=== PATIENT | male | born 1985 | race Hispanic/Latino ===

== ENCOUNTER 2017-04-13 00:47 | Emergency (ER) | payer SELFPAY ==
[2017-04-13 00:53] VITALS: BP 172/86; PULSE 75; O2SAT 100
--- NOTE | 2017-04-13 02:05 | ED.REPORT ---
HPI-Back Pain Under 40 Date of Service Apr 13, 2017 ED Provider: Dr. Galan The pt is a 31 y/o homeless and unemployed male with no pertinent hx who presents to the ED complaining of worsening left sided lower back pain, onset three months ago. The pt has had this pain since a work-related accident in 2014. He has not had physical therapy or pain medication for the last three months. Associated sx include tingling sensation radiating to the lower extremities. He reports difficulty sleeping and depression due to the pain. He denies recent injury to the back and fever. The pt does not have a PCP since being unemployed. Nursing Notes Stated Complaint: BACK PAIN Chief Complaint: Back Pain or Injury Nursing Notes Reviewed: Yes Allergies: Coded Allergies: No Known Allergies (Unverified Allergy, Unknown, 07/24/15) General Time Seen by MD: 02:05 Chief Complaint Back pain Hx Obtained From: Patient Arrived By: Walk-in Sudden in Onset?: No Onset Occurred: More than a week ago... (3 months) Symptom Duration: Since onset Location: : Perispinal lumbar Quality: Painful Radiation: : Does not radiate Severity: Current: Moderate Severity: Maximum: Severe Recent Healthcare: No recent doctor visit Past Medical History Past Medical History none reported Past Surgical History none reported Smoking History Never Smoker Social History Alcohol Use: 1-3 per week Drug Use: Denies drug use Other Social History: Homeless Occupation Unemployed Ambulatory Status Independent Review of Systems Reports: tingling sensation in the lower extremities Denies: recent injury to the back Basic Review of Systems Eyes: Vision NL ENT: Hearing NL, No pain Hematologic: No bleeding Endocrine: No cold intolerance, No heat intolerance Constitutional: Reports: Fever Male: Denies Dysuria Musculoskeletal: Reports: Back pain Complete sys rev & neg: except as marked. (he denies saddle anesthesia, loss of bowel or bladder control. Denies urine retention. Denies leg weakness.) Psychiatric: Reports: Depression (due to unmanaged pain) Physical Exam Initial Vital Signs Vital Signs (First) Date Time Temp Pulse Resp B/P Pulse Ox O2 Delivery O2 Flow Rate FiO2 04/13/17 00:53 36.7 75 172/86 100 Room Air Initial VS: Reviewed Head / Eyes: Atraumatic, Normocephalic Neck: Supple, Non-tender, Full range of motion Respiratory: Breath sounds normal, Clear to auscultation, No respiratory distress Cardiovascular: Heart sounds normal, Intact distal pulses Abdomen / GI: Soft, Non-tender, No guarding, No rebound, No distention Extremities: Vascular intact, Neuro intact, No swelling, No tenderness Skin: Warm, Dry, No cyanosis General/Constitutional: Awake, Alert, Well appearing, Cooperative Distress / Hydration: Positive: Distress mild Back: Atraumatic, Full range of motion, No midline vertebral tend No cord syndrome Neurologic: Oriented X3, Speech NL, No motor deficits, No sensory deficits Re-Eval/Medical Decision Med Decision/Clinical Course No high risk features for infection.. No midline tenderness. No fever. No injection drug abuse. No cord syndrome or signs of myelopathy. As such emergent MRI not indicated. His pain will be treated with IM Toradol. A take- home pack of [place] will be provided. Recommend [id number] ibuprofen and outpatient follow-up. Re-Evaluation/Progress : Time of Eval: 02:21 Re-Evaluation/Progress Note: Rechecked pt. Discussed diagnosis and plan to discharge. Pt understands and agrees with the plan. F/U instruction and RTER warning given. All questions addressed. Counseled Regarding: Diagnosis, Need for follow-up, When/why to return to ED Discharge & Departure Impression: Primary Impression: Low back pain Chronicity: chronic Back pain laterality: right Sciatica presence: without sciatica Qualified Code: M54.5 - Low back pain Disposition: Home All VS Reviewed: Yes Condition: Stable Patient Instructions: Lumbar Radiculopathy (ED) Additional Instructions: Finish the Medrol dose pack Take 1-2 [place] every 6 hours as needed for pain. Do not drive or drink alcohol or consume acetaminophen while taking the [place]. Take Naprosyn twice daily. Take [id number] motrin every 24 hours. You will need a PCP to manage your pain on recurrent bases. Refer to the [facility] consult below. If you develop any new or worsening pain come back to the emergency department. It was very nice meeting you. [place] 1-2 [place] cada 6 horas segn sea necesario para el dolor. No conduzca ni shira alcohol ni consuma acetaminofn mientras rudy el [place]. [place] Naprosyn dos veces al da. [place] la motn de venta norah cada 24 horas. Usted necesitar un PCP para manejar short dolor en bases recurrentes. Consulte la consulta del [facility] a continuacin. Si desarrolla algn dolor nuevo o que empeora regrese al servicio de urgencias. Fue muy agradable conocerte. Referrals: [facility] Scribe Attestation Portions of this note were transcribed by Malinda Rodríguez. I,, personally performed the history,physical exam and medical decision-making;I reviewed and confirmed the accuracy of the information in the transcribed note. Signed by Magdaleno Munguia. 04/13/17 Rubin Galan DO Apr 13, 2017 02:05 Malinda Rodríguez Apr 13, 2017 02:21
[2017-04-13] MEDS ORDERED: _HYDROcodone/APAP 5-325 mg Tablet PO PRN (02:25)
[2017-04-13 03:47] VITALS: BP 124/84; PULSE 71; RESP 16; O2SAT 98
== END 2017-04-13 03:41 | disposition home or self-care (01) ==
LOC: SED 00:47
DX: M54.5 Low back pain (principal); Z59.0 Homelessness
CPT/HCPCS: 96372; 99283; J1885